=== PATIENT | female | born 1980 | race Caucasian/White ===

== ENCOUNTER 2021-09-01 18:01 | Emergency (ER) | payer OTHER ==
[~2021-09-01 18:01] MED LIST: AMOXICILLIN500 MG PO
== END 2021-09-01 20:50 | disposition home or self-care (01) ==
LOC: FER 18:01
DX: S71.152A Open bite, left thigh, initial encounter (principal); F17.210 Nicotine dependence, cigarettes, uncomplicated; Z23 Encounter for immunization; Z28.310 Unvaccinated for COVID-19; W54.0XXA Bitten by dog, initial encounter; Y92.89 Other specified places as the place of occurrence of the external cause; Y99.0 Civilian activity done for income or pay
CPT/HCPCS: 90471; 90715